=== PATIENT | female | born 1990 | race Caucasian/White ===

== ENCOUNTER 2022-11-19 20:04 | Outpatient (OUT) | payer OTHER, SELFPAY ==
[2022-11-23 14:09] LABS: HPV Aptima Negative (Negative); Pap IG (Image Guided) Note (.)
== END 2022-11-19 20:05 ==
PROVIDERS: PCP Physician Assistant; Visit Provider Physician Assistant
DX: Z12.4 Encounter for screening for malignant neoplasm of cervix (principal); R87.610 Atypical squamous cells of undetermined significance on cytologic smear of cervix (ASC-US); Z11.51 Encounter for screening for human papillomavirus (HPV); Z30.42 Encounter for surveillance of injectable contraceptive
CPT/HCPCS: 87624; G0145

== ENCOUNTER 2024-03-18 21:10 | Outpatient (REF) | payer OTHER, SELFPAY | END 2024-03-18 21:11 | disposition home or self-care (01) | LOC: LAB 21:10 | PROVIDERS: PCP Physician Assistant; Visit Provider Physician Assistant | DX: Z01.419 Encounter for gynecological examination (general) (routine) without abnormal findings (principal) | CPT/HCPCS: 88175 ==

== ENCOUNTER 2025-04-22 19:01 | Outpatient (REF) | payer OTHER, SELFPAY ==
--- OUTSIDE RECORDS SUMMARY | 2023-11-28 10:15 | XMS_ITS ---
Author Organization [facility] vices Address [address] [place] [phone] Care Team Providers Care Cosmetics And Toiletries Salesperson Name Role Phone Stephanie Maria Unavailable [phone] REASON FOR VISIT Rest #15-O Social History Sex Assigned At : Social History Observation Description Sex Assigned At Female Encounters Encounter Location Date Provider Diagnosis [facility] [address] [place], [place] [phone] 11/28/2023 Stephanie Maria Plan Of Treatment No Information Progress Notes * Cecilio SWENSONOB:1990 (35 yo F)Acc No.[id number]:11/28/2023 Patient:?Michael SWENSONin :?Stephanie Maria DDSDOB:1990???Age:33 Y ???Sex:FemaleDate:11/28/2023hone:[phone]:[address] [place], [place] [phone] Subjective: * Chief Complaints: * 1 . Rest #15-O. * Medical History: Objective: * Vitals: Assessment: Plan: * Treatment: * Billing Information: * Visit Code: * Procedure Codes: * Electronic signature of Stephanie Maria DDS on 04/22/2025 at 07:06 PM EST Sign off status: Pending * Provider: Sylvester Maria DDS Date: 11/28/2023 Generated for Printing/Faxing/eTransmitting on:?04/22/2025 07:06 PM EST
--- OUTSIDE RECORDS SUMMARY | 2023-11-29 03:45 | XMS_ITS ---
Author Organization [facility] vices Address [address] [place] [phone] Care Team Providers Care Human Services Program Specialist Name Role Phone Stephanie Maria Unavailable [phone] REASON FOR VISIT Rest #17-O Social History Sex Assigned At : Social History Observation Description Sex Assigned At Female Encounters Encounter Location Date Provider Diagnosis [facility] [address] [place], [place] [phone] 11/29/2023 Stephanie Maria Plan Of Treatment No Information Progress Notes * Cecilio SWENSONOB:1990 (35 yo F)Acc No.[id number]:11/29/2023 Patient:?Michael SWENSONin :?Stephanie Maria DDSDOB:1990???Age:33 Y ???Sex:FemaleDate:11/29/2023hone:[phone]:[address] [place], [place] [phone] Subjective: * Chief Complaints: * 1 . Rest #17-O. * Medical History: Objective: * Vitals: Assessment: Plan: * Treatment: * Billing Information: * Visit Code: * Procedure Codes: * Electronic signature of Stephanie Maria DDS on 04/22/2025 at 07:06 PM EST Sign off status: Pending * Provider: Sylvester Maria DDS Date: 11/29/2023 Generated for Printing/Faxing/eTransmitting on:?04/22/2025 07:06 PM EST
--- OUTSIDE RECORDS SUMMARY | 2024-02-18 07:45 | XMS_ITS ---
Author Organization [facility] vices Address [address] [place] [address] [place], [place] [phone] Care Team Providers Care Field Auto Appraiser Name Role Phone Stephanie Maria Unavailable [phone] Dori Mcfarlane Unavailable [phone] REASON FOR VISIT Recall (A) (36) Social History Sex Assigned At : Social History Observation Description Sex Assigned At Female Encounters Encounter Location Date Provider Diagnosis [facility] [address] [place] [phone] 02/18/2024 Dori Mcfarlane Plan Of Treatment No Information Progress Notes * KERRI MichaelinDOB:1990 (35 yo F)Acc No.[id number]:02/18/2024 Patient:?Myesha SWENOSN :?Dori Mcfarlane DDSDOB:1990???Age:34 Y ???Sex:FemaleDate:02/18/2024hone:[phone]:[address] [place], [place] [phone] Subjective: * Chief Complaints: * 1 . Recall (A) (36). * Medical History: Objective: * Vitals: Assessment: Plan: * Treatment: * Billing Information: * Visit Code: * Procedure Codes: * Electronic signature of Dori Mcfarlane DDS on 04/22/2025 at 07:06 PM ESTSign off status: Pending * Provider: Antonio Mcfarlane DDS Date: 0 02/18/2024 Generated for Printing/Faxing/eTransmitting on:?04/22/2025 07:06 PM EST
--- OUTSIDE RECORDS SUMMARY | 2025-04-22 09:00 | XMS_ITS | Encounter Summary ---
Author Organization [facility] Address [address] [place] [address] Care Team Providers Care Mine Engineering Supervisor Name Role Phone Marcus Swan MD Primary Care Provider [phone] Reason for Visit * ReasonCommentsGynecologic Exam Encounter Details DateTypeDepartmentCare Team (Latest Contact Info)Rxnvznijaov98/13/2025 9:00 AM ESTProcedure Visit [facility] [address] [address] Sachi Pradhan, RAO [address] [place] [address] Well woman exam with routine gynecological exam Social History Tobacco UseTypesPacks/DayYears UsedDateSmoking Tobacco: Never AssessedAlcohol UseStandard Drinks/WeekCommentsNever0 (1 standard drink = 0.6 oz pure alcohol) CommentsUnknownSex and Gender InformationValueDate RecordedSex Assigned at BirthNot on fileLegal KveBwmfgy71/15/2023 11:47 PM EDTGender IdentityNot on fileSexual OrientationNot on filedocumented as of this encounter Last Filed Vital Signs Vital SignReadingTime TakenCommentsBlood Yguxwtga270/6004/22/2025 9:04 AM EST Pulse--Temperature--Respiratory Rate--Oxygen Saturation--Inhaled Oxygen Concentration--Oaojoc04.2 kg (176 lb 12.8 oz)04/22/2025 9:04 AM ESTHeight--Body Mass Index30.35106/26/2022 10:31 AM ESTdocumented in this encounter Progress Notes * Sachi Lorne, RAO - 04/22/2025 9:00 AM EST Reason for Appointment: Patient ID: Myesha Swenson is a 35 y.o. female who presents for Gynecologic Exam Patient presents today for Annual Exam. MEDICATIONS No current outpatient medications ALLERGIES No Known Allergies PROBLEMS Active Ambulatory Problems Diagnosis Date Noted Acute stress reaction 11/14/2022 Atypical squamous cells of undetermined significance (ASCUS) on Papanicolaou smear of cervix 11/14/2022 Carcinoma in situ of uterine cervix 11/14/2022 Cervical high risk HPV (human papillomavirus) test positive 11/14/2022 Cervical intraepithelial neoplasia grade 2 11/14/2022 Chronic migraine without aura, not intractable, without status migrainosus 11/14/2022 High grade squamous intraepithelial lesion on cytologic smear of cervix (HGSIL) 11/14/2022 Obesity 11/14/2022 Dermatitis 05/06/2023 Resolved Ambulatory Problems Diagnosis Date Noted No Resolved Ambulatory Problems Past Medical History: Diagnosis Date Atypical squamous cell changes of undetermined significance (ASCUS) on cervical cytology with negative high risk human papilloma virus (HPV) test result HGSIL on Pap smear of cervix High grade squamous intraepithelial lesion (HGSIL), grade 3 ZA, on biopsy of cervix Migraine Moderate dysplasia of cervix (ZA II) Obesity (BMI 30-39.9) HISTORY PAST MEDICAL HISTORY SOCIAL HISTORY Past Medical History: Diagnosis Date Acute stress reaction Atypical squamous cell changes of undetermined significance (ASCUS) on cervical cytology with negative high risk human papilloma virus (HPV) test result Cervical high risk HPV (human papillomavirus) test positive HGSIL on Pap smear of cervix High grade squamous intraepithelial lesion (HGSIL), grade 3 ZA, on biopsy of cervix Migraine chronic Moderate dysplasia of cervix (ZA II) Obesity (BMI 30-39.9) Social History Tobacco Use Smoking status: Not on file Smokeless tobacco: Not on file Substance Use Topics Alcohol use: Never Drug use: Never FAMILY HISTORY No family history on file. SURGICAL HISTORY Past Surgical History: Procedure Laterality Date CERVICAL BIOPSY W/ LOOP ELECTRODE EXCISION HERNIA REPAIR 2019 REVIEW OF SYSTEMS Review of Systems: Review of Systems Constitutional: Negative. HENT: Negative. Eyes: Negative. Respiratory: Negative. Cardiovascular: Negative. Gastrointestinal: Negative. Genitourinary: Negative. Musculoskeletal: Negative. Skin: Negative. Neurological: Negative. All other systems reviewed and are negative. Hematological: Negative. Endocrine: Negative. Allergic/Immunologic: Negative. OBJECTIVE Objective: Physical Exam Constitutional: Appearance: Normal appearance. She is well-developed. Genitourinary: Vulva normal. Breasts: Breasts are soft. Right: Normal. Left: Normal. Cardiovascular: Rate and Rhythm: Normal rate and regular rhythm. Pulmonary: Effort: Pulmonary effort is normal. Breath sounds: Normal breath sounds. Abdominal: General: Bowel sounds are normal. There is no distension. Palpations: Abdomen is soft. Tenderness: There is no abdominal tenderness. There is no guarding or rebound. Musculoskeletal: General: No swelling. Normal range of motion. Right lower leg: No edema. Left lower leg: No edema. Neurological: Mental Status: She is alert and oriented to person, place, and time. Skin: General: Skin is warm and dry. Psychiatric: Mood and Affect: Mood normal. Behavior: Behavior normal. Vitals and nursing note reviewed. Exam conducted with a orthotic technician present. Vitals: Estimated body mass index is 30.35 kg/m?? as calculated from the following: Height as of 04/26/23: 5' 4 . Weight as of this encounter: 176 lb 12.8 oz. BP: 102/60 No LMP recorded. ASSESSMENT & PLAN ICD-10-CM 1. Well woman exam with routine gynecological exam Z01.419 Pap Smear HPV DNA probe, amplified Assessment/Plan Annual Exam: Patient presents today for an annual exam. Patient states she is doing well and has no complaints. Pap was obtained without difficulty. Orders Placed This Encounter Procedures HPV DNA probe, amplified Follow Up: Patient is to return in one year for annual unless needed otherwise. Documented by Abigail Rodriguez CST on behalf of: Sachi Pradhan NP documented in this encounter Plan of Treatment DateTypeDepartmentCare Team (Latest Contact Info)Qcmegayysoi85/25/2026 4:00 PM ESTProcedure Visit [facility] [address] [place] [phone] Russel Altamirano, [address] [place] [address] NameTypePriorityAssociated DiagnosesOrder SchedulePap SmearPathology and CytologyRoutine Well woman exam with routine gynecological exam Ordered: 04/22/2025HPV DNA probe, amplifiedMicrobiologyRoutine Well woman exam with routine gynecological exam Ordered: 04/22/2025documented as of this encounter Visit Diagnoses Diagnosis Well woman exam with routine gynecological exam Routine gynecological examination documented in this encounter Care Teams Team MemberRelationshipSpecialtyStart DateEnd Date Marcus Swan MD [address] [place] [address] PCP - GeneralFamily Medicine10/07/23documented as of this encounter
--- OUTSIDE RECORDS SUMMARY | 2025-04-22 19:04 | XMS_ITS | CCD ---
Author Organization [facility] Care Team Providers Care General Production Laborer Name Role Phone MARCUS DANG Primary Care UnavailFANTASMA Muro Attending Unavailable Marcus Dang Primary Care Provider Genna Bella Primary Care Provider [phone] MATT, DR ENG Admitting Unavailable MATT, DR ENG Attending Unavailable LAURENCE, DR MARCUS Irene Primary Care Unavailable MATT, DR ENG Consulting Unavailable MATT, DR ENG Admitting Unavailable MATT, DR ENG Attending Unavailable NADDONNELLR, DR MARCUS Irene Primary Care Unavailable MATT, DR ENG Consulting Unavailable MATT, DR ENG Admitting Unavailable MATT, DR ENG Attending Unavailable NADLAKIA, DR MARCUS Irene Primary Care Unavailable MATT, DR ENG Consulting Unavailable FELIPE NUNES Consulting Unavaila ble MATT, DR ENG Admitting Unavailable MATT, DR ENG Attending Unavailable LAURENCE, DR MARCUS Irene Primary Care Unavailable MATT, DR ENG Consulting Unavailable MATT, DR ENG Admitting Unavailable MATT, DR ENG Attending Unavailable NADLAKIA, DR MARCUS Irene Primary Care Unavailable MATT, DR ENG Consulting Unavailable JACEY BERRIOS Attending Unavailable JACEY BERRIOS Attending Unavailable JACEY BERRIOS Attending Unavailable Marcus Dang MD Primary Care Provider Medications Current Medications MedicationDrug Class(es)DatesSig (Normalized)Sig (Original)albuterol sulfate HFA 108 (90 Base) MCG/ACT inhaler 2 puff (1 source)Start: 98-69-8229dqduavdha sulfate HFA 108 (90 Base) MCG/ACT inhaler 2 puffaluminum chloride 200 mg/ml topical solution (5 sources)Start: 01-31-2024 End: 24-67-1754Tneifw 20 % external solution APPLY TO AREAS OF EXCESSIVE SWEATING UNDERARMS AT BEDTIME 01/31/2024 03/18/2024 Discontinueddicyclomine hydrochloride 10 mg oral capsule (1 source)AnticholinergicStart: 25-67-4702wreg 2 capsules by mouth four times daily as neededdicyclomine (BENTYL) 10 MG capsule Take 2 capsules by mouth 4 times daily as needed (cramping) 20 capsule 0 03/22/2017 Activeibuprofen 200 mg oral tablet (1 source)Nonsteroidal Anti-inflammatory Drugtake 2 tablets by mouth every six hours as needed for painibuprofen (ADVIL;MOTRIN) 200 MG tablet Take 400 mg by mouth every 6 hours as needed for Pain 0 Active Completed/Discontinued Medications MedicationDrug Class(es)DatesSig (Normalized)Sig (Original)albuterol 0.833 mg/ml / ipratropium bromide 0.167 mg/ml inhalant solution (1 source)Anticholinergic, beta2-Adrenergic AgonistStart: 08-03-2020 End: 83-69-8780znfisdzurcu-albuterol (DUONEB) nebulizer solution 1 ampule Problems Active Problems Problem ClassificationProblemDateDocumented DateEpisodic/ChronicAnxiety disorders (7 sources)Acute stress disorder; Translations: [Acute stress reaction]Onset: 086244-38-9152NoccyemIrhwquk obstructive pulmonary disease and bronchiectasis (1 source)Bronchitis; Translations: [Bronchitis]EpisodicHeadache; including migraine (7 sources)Migraine without aura, not refractory ; Translations: [Chronic migraine without aura, not intractable, without status migrainosus]Onset: 387767-50-7374QvyxboaCopdbemtsqswv and screening for infectious disease (5 sources)Encounter for screening for human papillomavirus (HPV); Translations: [ENC SCREENING HUMAN PAPILLOMAVIRUS]Onset: 67-94-0901NozxeiidBmnmg nutritional; endocrine; and metabolic disorders (7 sources)Obesity; Translations: [Obesity, unspecified]Onset: 11-14-2022 94-60-6564BlhdqlqBnbha screening for suspected conditions (not mental disorders or infectious disease) (6 sources)Encounter for screening for diabetes mellitus; Translations: [Encounter for screening for malignantneoplasm of cervix]Onset: 02-04-2019 EpisodicUnclassified (1 source)CONTACT W/AND (SUSP) EXPOS COVID-19; Translations: [CONTACT W/AND (SUSP) EXPOS COVID-19]Onset: 09-27-2021 Past or Other Problems Problem ClassificationProblemDateDocumented DateEpisodic/ChronicAllergic reactions (7 sources)Inflammatory dermatosis; Translations: [Dermatitis, unspecified] Onset: 655524-57-2326EqndfdldTkicsv of cervix (20 sources)High grade squamous intraepithelial lesion on cytologic smear of cervix (HGSIL); Translations: [Atypical squamous cells of undetermined significance on cytologic smear of cervix (ASC-US)]Onset: 871153-65-9577 EpisodicContraceptive and procreative management (2 sources)Patient encounter status; Translations: [Encounter for surveillance of implantable subdermal contraceptive]55-53-3743OyjkxsxfOgoynurq mellitus without complication (2 sources)Diabetes mellitus without complication; Translations: [Questionnaires Phq-9 Total Score]Onset: 12-95-6111Drfxv female genital disorders (7 sources)Cervical intraepithelial neoplasia grade 2; Translations: [Moderate cervical dysplasia]Onset: 015693-11-0622HyabnlsjNedtmwxo transmitted infections (not HIV or hepatitis) (11 sources)Cervical high risk human papillomavirus (HPV) DNA test positive; Translations: [Human papillomavirus deoxyribonucleic acid test positive, high risk on cervical specimen]Onset: 44-82-8786JomhvlryAupkofibuvnm (1 source)Finding of body mass index; Translations: [Body Mass Index]Onset: 09-80-1455Fisupzylrpzq (1 source)History AND physical examination; Translations: [Routine History and Physical]Onset: 02-04-2019 Results Test NameValueInterpretationReference RangeFacilityIGP,APTIMA HPV,AGE GDLNon 79-27-0603UMU GDLN ACOG TESTINGNote.NOMS HealthcareComment on above:TESTS RESULT FLAG UNITS REF RANGE LAB Clinician Provided Cytology Information Source.............Cervix;Endocervix No. of containers..01 ThinPrep Vial Age Talita HILL Beth... 28 FLAG LEGEND: L-Low Normal,H-High Normal,LL-Alert Low,HH-Alert High <-Panic Low,>-Panic High,A-Abnormal,AA-Critical Abnormal Performed at: 01 =G [address] [address] Rosita Serrato MD, HPV APTIMANegativeNegativeNOMS HealthcareComment on above:This nucleic acid amplification test detects fourteen high- risk HPV types (16,18,31,33,35,39,45,51,52,56,58,59,66,68) without differentiation. Performed at: =[address] [id number] Billboard Erector Helper: Rosita Serrato MD, Phone: [phone] Performed at: - [address] [id number] Billboard Erector Helper: Rosita Serrato MD, Phone: [phone] IGP, APTIMA HPV, RFX 16/18,45Note.NOMS HealthcareComment on above:TESTS RESULT FLAG UNITS REF RANGE LAB DIAGNOSIS: 02 NEGATIVE FOR INTRAEPITHELIAL LESION OR MALIGNANCY. Specimen adequacy: 02 Satisfactory for evaluation. Endocervical and/or squamous metaplastic cells (endocervical component) are present. Performed by: Darion Welsh Telephone Engineer ([facility]) . 02 Note: Note 02 The Pap smear is a screening test designed to aid in the detection of premalignant and malignant conditions of the uterine cervix. It is not a diagnostic procedure and should not be used as the sole means of detecting cervical cancer. Both false-positive and false-negative reports do occur. Test Methodology: Note 02 This liquid based ThinPrep(R) pap test was screened with the use of an image guided system. HPV Genotype Reflex Note 02 Criteria not met, HPV Genotype not performed. FLAG LEGEND: L-Low Normal,H-High Normal,LL-Alert Low,HH-Alert High <-Panic Low,>-Panic High,A-Abnormal,AA-Critical Abnormal Performed at: [address] [address] Rosita Serrato MD, BRUSH-SPATULA CERVIX ENDOCERVIX CLINISYNCNOMS [facility] ACOG PANEL 2: 30 to 65on 01-23-2022..NormalThe [facility]ency Hospital ToledoComment on above:Result Comment: Performed at: WBPerformed By: #### [id number] #### [facility] [address] [place] [address] James Yu Gdln ACOG Abbukhc24-70HxwvmiKujKing's Daughters Medical Center OhioComment on above:Performed By: #### [id number] #### [facility] [address] [place] [address] Dr. James CastanedaDIAGNOSIS:CommentAbJ.W. Ruby Memorial Hospital on above: Result Comment: EPITHELIAL CELL ABNORMALITY. ATYPICAL SQUAMOUS CELLS OF UNDETERMINED SIGNIFICANCE (ASC-US). PREDOMINANCE OF COCCOBACILLI CONSISTENT WITH SHIFT IN VAGINAL SHELBIE IS PRESENT. Performed at: WBPerformed By: #### [id number] #### [facility] [address] [place] [address] Dr. Ramirez ChangElectronically signed by:[facility] Comment on above:Result Comment: Lesly aSndoval MD, Pathologist Performed at: WBPerformed By: #### [id number] #### [facility] [address] [place] [address] Dr. James CastanedaHPV AptimaPositiveAbnormalNegativeKettering HealthComment on above:Result Comment: This nucleic acid amplification test detects fourteen high-risk HPV types (16,18,31,33,35,39,45,51,52,56,58,59,66,68) without differentiation. Performed at: =GPerformed By: #### [id number] #### [facility] [address] [place] [address] Dr. James CastanedaMethodology:CommentSelect Medical Specialty Hospital - [facility] on above: Result Comment: This liquid based ThinPrep(R) pap test was screened with the use of an image guided system. Performed at: WBPerformed By: #### [id number] #### [facility] [address] [place] [address] Dr. James CastanedaNote:CommentSelect Medical Specialty Hospital - [place] on above:Result Comment: The Pap smear is a screening test designed to aid in the detection of premalignant and malignant conditions of the uterine cervix. It is not a diagnostic procedure and should not be used as the sole means of detecting cervical cancer. Both false-positive and false-negative reports do occur. . Performed at: WBPerformed By: #### [id number] #### [facility] [address] [place] [address] Dr. James CastanedaPathologist Provided PTO11HvzravkEyughgPjxKing's Daughters Medical Center Ohio Comment on above:Result Comment: R87.610, R87.5 Performed at: Performed By: #### [id number] #### [facility] [address] [place] [address] Dr. James CastanedaPerformed by:CommentBlanchard Valley Health Systemment on above: Result Comment: Giovanni Philip, Telephone Engineer (ASCP) Performed at: Performed By: #### [id number] #### [facility] [address] [place] [address] Dr. James CastanedaRecommendation:CommentAbnoKing's Daughters Medical Center OhioComhillsdale hospital on above:Result Comment: Suggest follow up as clinically appropriate. Performed at: Performed By: #### [id number] #### [facility] [address] [place] [address] Dr. James CastanedaSpecimen adequacy:CommentSelect Medical Specialty Hospital - [place] on above:Result Comment: Satisfactory for evaluation. Endocervical and/or squamous metaplastic cells (endocervical component) are present. Performed at: Performed By: #### [id number] #### [facility] [address] [place] [address] Dr. James Jones AUTO DIFFon 84-77-2304LFNI #0.0 103/ulNormal0.0-0.1Kettering HealthComment on above:Performed By: #### CBC #### [facility] [address] [place] [address] Dr. James CastanedaBasophils/100 WBC (Bld)0.6 %Normal0.2-2.0The [facility] Comment on above:Performed By: #### CBC #### [facility] [address] [place] [address] Dr. James Tan #0.2 103/ulNormal0.0-0.7The [facility] ToledoComment on above: Performed By: #### CBC #### [facility] [address] [place] [address] Dr. James Desaiosinophils/100 WBC (Bld)4.3 %Normal0.9-7.0The [facility] Comment on above:Performed By: #### CBC #### [facility] [address] [place] [address] Dr. James Desairythrocyte distribution width (RBC) [Ratio]12.4 %Xllufq27.0-15.0 The [facility] ToledoComment on above:Performed By: #### CBC #### [facility] [address] [place] [address] Dr. James CastanedaHematocrit (Bld) [Volume fraction]41.7 %Qfpbcs90.0-48.0The [facility] ToledoComment on above:Performed By: #### CBC #### [facility] [address] [place] [address] Dr. James CastanedaHemoglobin (Bld) [Mass/Vol]13.7 g/fNHutoyg86.0-16.0The [facility] ToledoComment on above:Performed By: #### CBC #### [facility] [address] [place] [address] Dr. James Figueroa #0.01 10e3/ulNormal0.00-0.03The [facility] ToledoComment on above:Performed By: #### CBC #### [facility] [address] [place] [address] Dr. James Figueroa %0.2 %Normal0.0-0.5The [facility] ToledoComment on above: Performed By: #### CBC #### [facility] [address] [place] [address] Dr. James BirdH #2.0 103/ulNormal1.2-3.8The [facility] ToledoComment on above:Performed By: #### CBC #### [facility] [address] [place] [address] Dr. James Acuñamphocytes/100 WBC (Bld)42.1 %Gewxfs08.5-60.0The [facility] ToledoComment on above:Performed By: #### CBC #### [facility] [address] [place] [address] DrTereza Boyd DIFF REQNONormalThe [facility] Hospital ToledoComment on above: Performed By: #### CBC #### [facility] [address] [place] [address] Dr. James Charles (RBC) [Entitic mass]32.4 rjCpbrlh55.7-34.0The [facility] ToledoComment on above:Performed By: #### CBC #### [facility] [address] [place] [address] Dr. James Charles (RBC) [Mass/Vol]32.9 g/hPRutbgu83.9-35.2The [facility]ittleton HospitalComment on above:Performed By: #### CBC #### [facility] [address] [place] [address] Dr. James Charles (RBC) [Entitic vol]98.6 wUHillfj47.0-99.0The [facility] ToledoComment on above:Performed By: #### CBC #### [facility] [address] [place] [address] Dr. James Fisher #0.3 103/ulNormal0.3-0.8The [facility] ToledoComment on above:Performed By: #### CBC #### [facility] [address] [place] [address] Dr. James Vicenteocytes/100 WBC (Bld)6.9 %Normal1.7-12.0[facility] Comment on above:Performed By: #### CBC #### [facility] [address] [place] [address] Dr. James Peña #2.1 103/ulNormal1.4-6.5The [facility] ToledoComment on above:Performed By: #### CBC #### [facility] [address] [place] [address] Dr. James Bhatiautrophils/100 WBC (Bld)45.9 %Nklrca06.0-75.0The [facility] ToledoComment on above:Performed By: #### CBC #### [facility] [address] [place] [address] Dr. James Minor mean volume (Bld) [Entitic vol]9.8 fLNormal9.5-13.5ThDelaware County HospitalComment on above:Performed By: #### CBC #### [facility] [address] [place] [address] Dr. James CastanedaPLT189 103/zjVfbvou471-795Peh [facility] ToledoComment on above: Performed By: #### CBC #### [facility] [address] [place] [address] Dr. James CastanedaRBC4.23 106/ulNormal4.20-5.40Kettering HealthComment on above:Performed By: #### CBC #### [facility] [address] [place] [address] Dr. James CastanedaWBC4.6 103/ulNormal4.0-11.0Kettering HealthComment on above: Performed By: #### CBC #### [facility] [address] [place] [address] Dr. James CastanedaPREMiguelito QUANT HCGon 35-79-2846BPE QUANT<1NormalKettering Health Comment on above:Performed By: #### PREGQNT #### [facility] [address] [place] [address] Dr. James CastanedaHCMiguelito RANGESEE BELOWNormalThDelaware County HospitalComment on above: Result Comment: 5-50 0-1 WEEK 40-300 1-2 WEEKS 100-1,000 2-3 WEEKS 500-6,000 3-4 WEEKS 5,000-200,000 1-2 MONTHS 10,000-100,000 2-3 MONTHS 3,000-50,000 2ND TRIMESTER 1,000-50,000 3RD TRIMESTERPerformed By: #### PREGQNT #### [facility] [address] [place] [address] Dr. James CastanedaCovid-19 PCR ([facility]VDNEWT[facility])on 86-45-7102KOGR-CoV-2 (COVID-19) RNA KAROLYN+probe Ql (Unsp spec)Not detectedNormalNOT DETECTEDKettering Health Comment on above:Result Comment: This test is not yet approved or cleared by the [place] FDA. When there are no FDA-approved or cleared tests available, and other criteria are met, FDA can make tests available under an emergency access mechanism called an Emergency Use Authorization (EUA). The EUA for this test is supported by the Shoe Sticks Repairer of Health and Human Service's (HHS's) declaration that circumstances exist to justify the emergency use of in vitro diagnostics for the detection and/or diagnosis of the virus that causes COVID- 19. This EUA will remain in effect (meaning this test can be used) for the duration of the COVID-19 declaration justifying emergency of IVDs, unless it is terminated or revoked by FDA (after which the test may no longer be used). When diagnostic testing is negative, the possibility of a false negative should be considered in the context of a patient's recent exposures and the presence of clinical signs and symptoms consistent with SARS-CoV-2.Performed By: #### CVDTBH #### [facility] [address] [place] [address] Dr. James CastanedaPanasir IG, rfx Aptima HPV ASCUon 09-06-2021..NormalKettering HealthComment on above:Performed By: #### [id number] #### [facility] [address] [place] [address] Dr. James CastanedaDIAGNOSIS:CommentAbCleveland Clinic FoundationComment on above: Result Comment: EPITHELIAL CELL ABNORMALITY. HIGH-GRADE SQUAMOUS INTRAEPITHELIAL LESION (HSIL); (ENCOMPASSING MODERATE AND SEVERE DYSPLASIA/CARCINOMA IN SITU/CIN2/CIN3).Performed By: #### [id number] #### [facility] [address] [place] [address] Dr. Ramirez ChangElectronically signed by:CommentMain Campus Medical Center Comment on above:Result Comment: Lisha Licona MD, PathologistPerformed By: #### [id number] #### [facility] [address] [place] [address] Dr. James CastanedaMethodology:CommentMain Campus Medical CenterComment on above: Result Comment: This liquid based ThinPrep(R) pap test was screened with the use of an image guided system.Performed By: #### [id number] #### [facility] [address] [place] [address] Dr. James CastanedaNote:CommentSelect Medical Specialty Hospital - [place] on above:Result Comment: The Pap smear is a screening test designed to aid in the detection of premalignant and malignant conditions of the uterine cervix. It is not a diagnostic procedure and should not be used as the sole means of detecting cervical cancer. Both false-positive and false-negative reports do occur. .Performed By: #### [id number] #### [facility] [address] [place] [address] Dr. James CastanedaPathologist Provided MAZ22SbgdpizJtxistJdgWhite Hospital Comment on above:Result Comment: R87.613Performed By: #### [id number] #### [facility] [address] [place] [address] Dr. James CastanedaPerformed by:CommentSelect Medical Specialty Hospital [facility] [place] on above: Result Comment: Stacey Santillan, CytotechnologistPerformed By: #### [id number] #### [facility] [address] [place] [address] Dr. James CastanedaReflex Criteria:CommentSelect Medical Specialty Hospital - [place] on above:Result Comment: The HPV DNA reflex criteria were not met with this specimen result therefore, no HPV testing was performed. .Performed By: #### [id number] #### [facility] [address] [place] [address] Dr. James CastanedaSpecimen adequacy:CommentSelect Medical Specialty Hospital - [place] on above:Result Comment: Satisfactory for evaluation. Endocervical and/or squamous metaplastic cells (endocervical component) are present.Performed By: #### [id number] #### [facility] [address] [place] [address] Dr. James Walters-CoV-2on 40-16-6847GVXM-CoV-2NWadsworth-Rittman Hospital Comment on above:Performed By: #### COVID #### [place] [address] Billboard Erector Helper: James Armenta MD [address] [place] [address] Billboard Erector Helper: GLORY FloresARS-CoV-2Not DetectedNormalNOTDETMJ.W. Ruby Memorial Hospital on above:Result Comment: The specimen is NEGATIVE for SARS-CoV-2, the novel coronavirus associated with COVID-19. A negative result does not rule out COVID-19. This test has been authorized by the FDA under an Emergency Use Authorization (EUA) for use by authorized laboratories. [employer] SARS-CoV-2 Reagents for [employer] are designed to detect the virus that causes COVID-19 in patients with signs and symptoms of infection who are suspected of COVID-19. An individual without symptoms of COVID-19 and who is not shedding SARS-CoV-2 virus would expect to have a negative (not detected) result in this assay. Fact sheet for Healthcare Providers: https://www.fda.gov/media/002971/download Fact sheet for Patients: https://www.fda.gov/media/586867/download METHODOLOGY: RT-PCRPerformed By: #### COVID #### [facility] [address] [place], [place] [id number] Billboard Erector Helper: James Armenta MD [address] [place] [address] Billboard Erector Helper: Deshawn Asher MDBasic Metab w/rfx MGon 08-03-2020(cont.)Normal [facility] on above:Result Comment: Average GFR for 30-39 years old: 107 mL/min/1.73sq m Chronic Kidney Disease: <60 mL/min/1.73sq m Kidney failure: <15 mL/min/1.73sq m eGFR calculated using average adult body mass. Additional eGFR calculator available at: http://www.[employer]/multiple_crcl_2012.htmPerformed By: #### DIME, BMPX, BNP, TROPI, CDP #### [address] [place] [address] Billboard Erector Helper: Deshawn Asher MDAnion gap [Moles/Vol]13 mmol/LNormal9-17[facility] Main CampusComment on above:Performed By: #### DIME, BMPX, BNP, TROPI, CDP #### [address] [place] [address] Billboard Erector Helper: Deshawn Asher MDBUN/CRE Cdwhs28Xyzapm3-03Fcjtv [facility] Comment on above:Performed By: #### DIME, BMPX, BNP, TROPI, CDP #### [address] [place] [address] Billboard Erector Helper: Deshawn Asher MDCalcium [Mass/Vol]9.4 mg/dLNormal8.6-10.4[facility] Main CampusComment on above:Performed By: #### DIME, BMPX, BNP, TROPI, CDP #### [address] [place], [facility] Billboard Erector Helper: KAREN Floreshloride [Moles/Vol]103 mmol/ABlxgvu17-816QoxaxWayne Healthcare Main CampusComment on above:Performed By: #### DIME, BMPX, BNP, TROPI, CDP #### [address] [place] [address] Billboard Erector Helper: Deshawn Asher MDCO2 [Moles/Vol]21 mmol/HVylbhh23-19Ndaur Tiffin HospitalComment on above:Performed By: #### DIME, BMPX, BNP, TROPI, CDP #### [address] [place] [address] Billboard Erector Helper: Deshawn Asher MDCreatinine [Mass/Vol]0.92 mg/dLHigh0.50-0.90[facility] HospitalComment on above:Performed By: #### DIME, BMPX, BNP, TROPI, CDP #### [address] [place], [place] [id number] Billboard Erector Helper: Deshawn Asher MDGFR, Amer>60Normal>60[facility] Hospital Comment on above:Performed By: #### DIME, BMPX, BNP, TROPI, CDP #### [address] [place], [place] [id number] Billboard Erector Helper: Deshawn Asher MDGFR,non Amer>60Normal>60[facility] HospitalComment on above:Performed By: #### DIME, BMPX, BNP, TROPI, CDP #### [address] [place] [address] Billboard Erector Helper: Deshawn Asher MDGlucose [Mass/Vol]146 mg/iTUliu10-53Eghcm Mullen HospitalComment on above:Performed By: #### DIME, BMPX, BNP, TROPI, CDP #### [address] [place], [place] [id number] Billboard Erector Helper: LUIS FELIPE Floresotassium [Moles/Vol]4.1 mmol/LNormal3.7-5.3Mmercy health tiffin hospitaly Mullen HospitalComment on above:Performed By: #### DIME, BMPX, BNP, TROPI, CDP #### [address] [place] [address] Billboard Erector Helper: GLORY Floresodium [Moles/Vol]137 mmol/TMwdbiw739-863CceenWayne Healthcare Main CampusComment on above:Performed By: #### DIME, BMPX, BNP, TROPI, CDP #### [address] [place] [address] Billboard Erector Helper: GLORY Florestaging:NormalGrand Lake Joint Township District Memorial Hospital HospitalComment on above:Result Comment: Stage 1: Some kidney damage normal GFR Stage 2: Mild kidney damage GFR 60-89 Stage 3: Moderate kidney damage GFR 30-59 Stage 4: Severe kidney damage GFR 15-29 Stage 5: Severe kidney damage GFR <15 ESRD - chronic treatment by dialysis or transplantPerformed By: #### DIME, BMPX, BNP, TROPI, CDP #### [facility] [address] [place] [address] Billboard Erector Helper: Deshawn Asher MDUrea nitrogen [Mass/Vol]9 mg/dLNormal6-20[facility] Main CampusComment on above:Performed By: #### DIME, BMPX, BNP, TROPI, CDP #### [facility] [address] [place] [address] Billboard Erector Helper: Deshawn Asher MDStamford Hospital Metabolic Panel w/ Reflex to MGon 08-03-2020 Anion gap [Moles/Vol]13 mmol/L9 - 17 mmol/LMmercy health tiffin hospitaly [employer] Work Phone: bun/Cre Dukzl36[place] [employer] Work Phone: calcium [Mass/Vol]9.4 mg/dL8.6 - 10.4 mg/dLOhiohealth Grant Medical CenterKyruus Phone: chloride [Moles/Vol]103 mmol/L98 - 107 mmol/LMmercy health tiffin hospitaly [employer] Work Phone: cO2 [Moles/Vol]21 mmol/L20 - 31 mmol/LMmercy health tiffin hospitaly [employer] Work Phone: creatinine [Mass/Vol]0.92 mg/dLHigh0.5 - 0.9 mg/dL [facility] [employer] Phone: GFR >60>60 mL/minC[facility] Clinic [facility] [employer] Work Phone: GFR Non->60>60 mL/minC[facility] Clinic [facility] [employer] Phone: Glucose [Mass/Vol]146 mg/oOGijy43 - 99 mg/dLOhiohealth Grant Medical CenterKyruus Phone: Interpretation and review of laboratory results AbnormalC[facility] Clinic [facility] [employer] Phone: potassium [Moles/Vol]4.1 mmol/L3.7 - 5.3 mmol/LMercy [employer] Work Phone: sodium [Moles/Vol]137 mmol/L135 - 144 mmol/LMercy [employer] Work Phone: Urea nitrogen [Mass/Vol]9 mg/dL6 - 20 mg/dLCleveland Clinic [facility] [employer] Work Phone: brain Natri. Peptideon [id number] peptide B (Bld) [Mass/Vol]Pro-BNP Reference Range:NormalWayne Healthcare Main CampusComment on above:Result Comment: Rule Out: <300 [place]: Age <50 300-450 Age 50-75 300-900 Age >75 300-1800 Usually represents mild to moderate HF but other cardiopulmonary causes cannot be ruled out. Rule In: Age <50 >450 Age 50-75 >900 Age >75 >1800Performed By: #### DIME, BMPX, BNP, TROPI, CDP #### [address] [place] [address] Billboard Erector Helper: Deshawn Asher MDNatriuretic peptide B (Bld) [Mass/Vol]36 pg/mL Normal<300Way[facility] Healthcare Main CampusComhillsdale hospital on above:Result Comment: Pro-BNP results cannot be compared to BNP results.Performed By: #### DIME, BMPX, BNP, TROPI, CDP #### [address] [place] [address] Billboard Erector Helper: Deshawn Asher MDBrain Natriuretic Peptideon [id number] peptide B (Bld) [Mass/Vol]Pro-BNP Reference Range:[facility] Phone: comment on above: Rule Out: <300 [place]: Age <50 300-450 Age 50-75 300-900 Age >75 300-1800 Usually represents mild to moderate HF but other cardiopulmonary causes cannot be ruled out. Rule In: Age <50 >450 Age 50-75 >900 Age >75 >1800 Natriuretic peptide B (Bld) [Mass/Vol]36 pg/mL<300[facility] [employer] Phone: comment on above:Pro-BNP results cannot be compared to BNP results.CBC Auto Differentialon [id number] (Bld) [#/Vol]0.00 10*3/[place] Phone: basophils/100 WBC (Bld)0 %0 - 2 %[employer] Phone: differential TypeNOT REPORTEDOhiohealth Grant Medical CenterKyruus Phone: Tosinophils (Bld) [#/Vol]0.00 10*3/[place] Phone: Rosinophils/100 WBC (Bld)0 %Low1 - 4 %[employer] Phone: erythrocyte distribution width (RBC) [Ratio]12.2 %11.8 - 14.4 %[employer] Phone: Hematocrit (Bld) [Volume fraction]44.3 %36.3 - 47.1 % [employer] Phone: Hemoglobin (Bld) [Mass/Vol]14.8 g/dL11.9 - 15.1 g/dL [employer] Phone: Immature granulocytes (Bld) [#/Vol]0 %0Ohio[facility] CenterKyruus Phone: Immature granulocytes (Bld) [#/Vol]0.00 10*3/[place] Phone: Interpretation and review of laboratory results AbnormalOhiohealth Grant Medical CenterKyruus Phone: lymphocytes (Bld) [#/Vol]0.45 10*3/uLLowOhiohealth Grant Medical CenterKyruus Phone: Lymphocytes/100 WBC (Bld)6 %Low24 - 43 %[employer] Phone: MCH (RBC) [Entitic mass]32.5 pg25.2 - 33.5 pgOhiohealth Grant Medical CenterKyruus Phone: MCHC (RBC) [Mass/Vol]33.4 g/dL28.4 - 34.8 g/dLCleveland Clinic [facility] [employer] Work Phone: [phone] (RBC) [Entitic vol]97.4 fL82.6 - 102.9 fLOhiohealth Grant Medical Centerice Work Phone: [phone] (Bld) [#/Vol]0.08 10*3/uLLowCleveland Clinic [facility] [employer] Work Phone: [phone]/100 WBC (Bld)1 %Low3 - 12 %[facility] Work Phone: Morphology Boni (Bld) [Interp]NormalOhiohealth Grant Medical CenterKyruus Phone: Platelet mean volume (Bld) [Entitic vol]10.7 fL8.1 - 13.5 fLOhiohealth Grant Medical CenterKyruus Phone: Platelets (Bld) [#/Vol]NOT REPORTEDC[facility] Clinic [facility] [employer] Work Phone: [phone] (Bld) [#/Vol]237 10*3/uLOhiohealth Grant Medical Centerice Work Phone: RBC (Bld) [#/Vol]4.55 10*6/uL3.95 - 5.11 m/uLOhiohealth Grant Medical CenterKyruus Phone: RBC morphology finding Nom (Bld)NOT REPORTEDC[facility] [employer] Phone: [phone] neutrophils/100 WBC (Bld)93 %High36 - 65 % [facility] [employer] Phone: Segs Absolute6.97[facility] [employer] Work Phone: WBC (Bld) [#/Vol]0.0 10*3/uL0.0 per 100 WBCOhiohealth Grant Medical CenterKyruus Phone: [phone] (Bld) [#/Vol]7.5 10*3/uLOhiohealth Grant Medical Centerice Work Phone: WBC MorphologyNOT REPORTEDDetwiler Memorial Hospital Work Phone: cbc with Diffon [id number]. Basophil0.00 k/uLNormal 0.0-0.2Mercy Mullen HospitalComment on above:Performed By: #### DIME, BMPX, BNP, TROPI, CDP #### [address] [place], [place] [address] Billboard Erector Helper: Demetri Flores.Imm.Granulocyte0.00 k/uLNormal0.00-0.30[facility] HospitalComment on above:Performed By: #### DIME, BMPX, BNP, TROPI, CDP #### [address] [place], [place] [address] Billboard Erector Helper: Demetri Flores.Neutrophil (Seg)6.97 k/uLNormal1.50-8.10[facility] HospitalComment on above:Performed By: #### DIME, BMPX, BNP, TROPI, CDP #### [address] [place] [address] Billboard Erector Helper: Deshawn Asher MDBasophils/100 WBC (Bld)0 %Normal0-2[facility]ercPomerene Hospital HospitalComment on above:Performed By: #### DIME, BMPX, BNP, TROPI, CDP #### [address] [place] [address] Billboard Erector Helper: ELIZA Floresosinophils (Bld) [#/Vol]0.00 10*3/uLNormal 0.00-0.44[facility] HospitalComment on above:Performed By: #### DIME, BMPX, BNP, TROPI, CDP #### [address] [place], [place] [address] Billboard Erector Helper: ELIZA Floresosinophils/100 WBC (Bld)0 %Low1-4[facility] Healthcare Main CampusComment on above:Performed By: #### DIME, BMPX, BNP, TROPI, CDP #### [facility] [address] [place] [address] [place] [address] Billboard Erector Helper: Deshawn Asher MDImmature granulocytes (Bld) [#/Vol]0 %Kvynrh6Qhtsr Mullen HospitalComment on above:Performed By: #### DIME, BMPX, BNP, TROPI, CDP #### [address] [place] [id number] Billboard Erector Helper: Deshawn Asher MDLymphocytes (Bld) [#/Vol]0.45 10*3/uLLow1.10-3.70 [facility] HospitalComment on above:Performed By: #### DIME, BMPX, BNP, TROPI, CDP #### [address] [place] [address] Billboard Erector Helper: Tim Floresmphocytes/100 WBC (Bld)6 %Rgy37-65Yddoy Tiffin HospitalComment on above:Performed By: #### DIME, BMPX, BNP, TROPI, CDP #### [address] [place] [place] [address] Billboard Erector Helper: SHARRI Floresonocytes (Bld) [#/Vol]0.08 10*3/uLLow0.10-1.20 [facility] HospitalComment on above:Performed By: #### DIME, BMPX, BNP, TROPI, CDP #### [address] [place] [address] Billboard Erector Helper: SHARRI Floresonocytes/100 WBC (Bld)1 %Low3-12[facility] HospitalComment on above:Performed By: #### DIME, BMPX, BNP, TROPI, CDP #### [address] [place], [facility]83 Billboard Erector Helper: SHARRI Floresorphology Boni (Bld) [Interp]NormalNormalWayne Healthcare Main CampusComment on above:Performed By: #### DIME, BMPX, BNP, TROPI, CDP #### [address] [place], [facility]83 Billboard Erector Helper: Deshawn Asher MDNeutrophil (Seg)93 %Ygia79-70EzqkdWayne Healthcare Main Campus Comment on above:Performed By: #### DIME, BMPX, BNP, TROPI, CDP #### [address] [place], [facility]83 Billboard Erector Helper: Deshawn Asher MDErythrocyte distribution width (RBC) [Ratio]12.2 % Iysodq37.8-14.4[facility] Healthcare Main CampusComment on above:Performed By: #### DIME, BMPX, BNP, TROPI, CDP #### [address] [place], [facility]83 Billboard Erector Helper: Deshawn Asher MDHematocrit (Bld) [Volume fraction]44.3 %Normal 36.3-47.1MProMedica Bay Park HospitalComment on above:Performed By: #### DIME, BMPX, BNP, TROPI, CDP #### [address] [place], [facility]83 Billboard Erector Helper: Deshawn Asher MDHemoglobin (Bld) [Mass/Vol]14.8 g/dLNormal 11.9-15.1MShelby Memorial Hospital HospitalComment on above:Performed By: #### DIME, BMPX, BNP, TROPI, CDP #### [address] [place], [facility]83 Billboard Erector Helper: SHARRI FloresCH (RBC) [Entitic mass]32.5 lgZkedoh49.2-33.5 [facility] HospitalComment on above:Performed By: #### DIME, BMPX, BNP, TROPI, CDP #### [address] [place], [place] [address] Billboard Erector Helper: MOE FloresC (RBC) [Mass/Vol]33.4 g/iXRhoyvf04.4-34.8[facility] Healthcare Main CampusComment on above:Performed By: #### DIME, BMPX, BNP, TROPI, CDP #### [address] [place], [place] [address] Billboard Erector Helper: SHARRI FloresCV (RBC) [Entitic vol]97.4 rHMnghsu61.6-102.9 [facility] CampusComment on above:Performed By: #### DIME, BMPX, BNP, TROPI, CDP #### [address] [place], [facility]83 Billboard Erector Helper: CANDE Flores Automated0.0 per 100 WBCNormal0.0[facility] Healthcare Main CampusComment on above:Performed By: #### DIME, BMPX, BNP, TROPI, CDP #### [address] [place], [place] [address] Billboard Erector Helper: Speedy Flores mean volume (Bld) [Entitic vol]10.7 fL Normal8.1-13.5[facility] Healthcare Main CampusComment on above:Performed By: #### DIME, BMPX, BNP, TROPI, CDP #### [address] [place], [place] [address] Billboard Erector Helper: Davina Flores (Bld) [#/Vol]237 10*3/wRSilxeh016-465 [facility] Main CampusComment on above:Performed By: #### DIME, BMPX, BNP, TROPI, CDP #### [address] [place] [address] Billboard Erector Helper: SOLEDAD Flores (Bld) [#/Vol]4.55 10*6/uLNormal3.95-5.11Mercy Mullen HospitalComment on above:Performed By: #### DIME, BMPX, BNP, TROPI, CDP #### [address] [place], [place] [address] Billboard Erector Helper: BABITA Flores (Bld) [#/Vol]7.5 10*3/uLNormal3.5-11.3Mercy Mullen HospitalComment on above:Performed By: #### DIME, BMPX, BNP, TROPI, CDP #### [address] [place] [address] Billboard Erector Helper: Jesus Flores PerformedNOT REPORTEDNormalGrand Lake [facility] HospitalComment on above:Performed By: #### DIME, BMPX, BNP, TROPI, CDP #### [address] [place] [address] Billboard Erector Helper: Davina Flores (d) [#/Vol]NOT REPORTEDNormalGrand Lake [facility] HospitalComment on above:Performed By: #### DIME, BMPX, BNP, TROPI, CDP #### [address] [place] [address] Billboard Erector Helper: SOLEDAD Flores morphology finding Nom (d)NOT REPORTEDNormal [facility] HospitalComment on above:Performed By: #### DIME, BMPX, BNP, TROPI, CDP #### [address] [place], [place] [address] Billboard Erector Helper: BABITA Flores MorphologyNOT REPORTEDNormalGrand Lake [facility] HospitalComment on above:Performed By: #### DIME, BMPX, BNP, TROPI, CDP #### [address] [place], [place] [address] Billboard Erector Helper: Deshawn Asher MDD-Dimer Teston [id number]-Dimer Test0.32 mg/L FEU Normal0.00-0.59Way[facility] Healthcare Main CampusComment on above:Result Comment: When combined with a low clinical probability, a D dimer value of <0.50 mg/L FEU is considered negative for DVT and PE (negative predictive value of 98%, sensitivity of 97%). If this test is not being used to help rule out DVT and PE, then the following reference range should be utilized: 0.00 - 0.59 mg/L FEU. The D-Dimer assay is intended for use as an aid in the diagnosis of venous thromboembolism (DVT and PE) and the results should be interpreted in conjunction with the patient's medical history, clinical presentation, and other findings. Elevated levels of D-dimer activity can be seen in any state of coagulation activation and is not recommended in patients with therapeutic dose anticoagulant therapy for >24 hours, fibrinolytic therapy within the previous 7 days, trauma or surgery within the previous 4 weeks, disseminated malignancies, aortic aneurysm, sepsis, severe infections, pneumonia, severe skin infections, liver cirrhosis, advanced age, coronary disease, diabetes, and . A very low percentage of patients with DVT may yield D-dimer results below the cutoff of 0.5 mg/L FEU. This is known to be more prevalent in patients with distal DVT.Performed By: #### DIME, BMPX, BNP, TROPI, CDP #### [address] [place] [address] Billboard Erector Helper: LISET Flores-Dimer, Quantitativeon [id number]-Dimer, Quant 0.32[facility] Work Phone: comment on above: When combined with a low clinical probability, a D dimer value of <0.50 mg/L FEU is considered negative for DVT and PE (negative predictive value of 98%, sensitivity of 97%). If this test is not being used to help rule out DVT and PE, then the following reference range should be utilized: 0.00 - 0.59 mg/L FEU. The D-Dimer assay is intended for use as an aid in the diagnosis of venous thromboembolism (DVT and PE) and the results should be interpreted in conjunction with the patient's medical history, clinical presentation, and other findings. Elevated levels of D-dimer activity can be seen in any state of coagulation activation and is not recommended in patients with therapeutic dose anticoagulant therapy for >24 hours, fibrinolytic therapy within the previous 7 days, trauma or surgery within the previous 4 weeks, disseminated malignancies, aortic aneurysm, sepsis, severe infections, pneumonia, severe skin infections, liver cirrhosis, advanced age, coronary disease, diabetes, and . A very low percentage of patients with DVT may yield D-dimer results below the cutoff of 0.5 mg/L FEU. This is known to be more prevalent in patients with distal DVT. Metabolic Panelon 56-23-2530SLA/1.73 sq M predicted among non-blacks MDRD (S/P/Bld) [Vol rate/Area][facility] Work Phone: comment on above:Stage 1: Some kidney damage normal GFR Stage 2: Mild kidney damage GFR 60-89 Stage 3: Moderate kidney damage GFR 30-59 Stage 4: Severe kidney damage GFR 15-29 Stage 5: Severe kidney damage GFR <15 ESRD - chronic treatment by dialysis or transplant Average GFR for 30-39 years old: 107 mL/min/1.73sq m Chronic Kidney Disease: <60 mL/min/1.73sq m Kidney failure: <15 mL/min/1.73sq m eGFR calculated using average adult body mass. Additional eGFR calculator available at: http://www.Sendmebox/multiple_crcl_2012.htm VPTX-ZhR-4tr [id number]-CoV-2 Source.NASOPHARYNGEAL SWABNormalWayne Healthcare Main CampusComment on above:Performed By: #### COVID #### [employer] [address] [place] [address] Billboard Erector Helper: James Armenta MD [facility] [address] [place] [address] Billboard Erector Helper: Ankit Flores 31-87-2187Wtqysbjn I.cardiac [Mass/Vol] ng/mLNormal0-14[facility] Healthcare Main CampusComment on above:Result Comment: High Sensitivity Troponin values cannot be compared with other Troponin methodologies. Patients with high levels of Biotin oral intake (i.e >5mg/day) may have falsely decreased Troponin levels. Samples collected within 8 hours of biotin intake may require additional information for diagnosis.Performed By: #### DIME, BMPX, BNP, TROPI, CDP #### [facility] [address] [place] [address] Billboard Erector Helper: Laya Flores I.cardiac [Mass/Vol]NOT REPORTEDNormal [facility] Main CampusComment on above:Performed By: #### DIME, BMPX, BNP, TROPI, CDP #### [facility] [address] [place] [address] Billboard Erector Helper: Laya Flores I.cardiac [Mass/Vol]NOT REPORTEDOhiohealth Grant Medical CenterKyruus Phone: Troponifaviola T.cardiac [Mass/Vol]NOT REPORTED<0.03 ng/mL [facility] Phone: Troponin, High Sensitivity<60 - 14 ng/LMzanesville city hospital [employer] Phone: comment on above: High Sensitivity Troponin values cannot be compared with other Troponin methodologies. Patients with high levels of Biotin oral intake (i.e >5mg/day) may have falsely decreased Troponin levels. Samples collected within 8 hours of biotin intake may require additional information for diagnosis. XR CHEST PORTABLEon [id number] CHEST PORTABLEEXAMINATION: ONE XRAY VIEW OF THE CHEST 08/03/2020 8:54 pm COMPARISON: None. HISTORY: ORDERING SYSTEM PROVIDED HISTORY: Shortness of breath TECHNOLOGIST PROVIDED HISTORY: Shortness of breath FINDINGS: The cardiomediastinal silhouette is normal in size and contour. The lungs are clear. No pleural effusion or pneumothorax is present. IMPRESSION: No acute cardiopulmonary process Interpreted by: Vitaly Bell MD Signed by: Vitaly Bell MD 08/03/20 Final resultNormalMercy Health Perrysburg Hospital acute cardiopulmonary processMetrohealth [facility] Medical Center Phone: edi, [facility] Incoming Radiant Results From [employer] - 08/03/2020 9:21 PM EST EXAMINATION: ONE XRAY VIEW OF THE CHEST 08/03/2020 8:54 pm COMPARISON: None. HISTORY: ORDERING SYSTEM PROVIDED HISTORY: Shortness of breath TECHNOLOGIST PROVIDED HISTORY: Shortness of breath FINDINGS: The cardiomediastinal silhouette is normal in size and contour. The lungs are clear. No pleural effusion or pneumothorax is present. IMPRESSION: No acute cardiopulmonary process [employer] Phone: eXAMINATION: ONE XRAY VIEW OF THE CHEST 08/03/2020 8:54 pm COMPARISON: None. HISTORY: ORDERING SYSTEM PROVIDED HISTORY: Shortness of breath TECHNOLOGIST PROVIDED HISTORY: Shortness of breath FINDINGS:The cardiomediastinal silhouette is normal in size and contour. The lungs are clear. No pleural effusion or pneumothorax is present.[employer] Phone: Vital Signs Date TimeVital SignValuePerforming DfqdjeigvPlcqwrnx46-02-0518 11:10-0400Body mass index (BMI) [Ratio]30.4 kg/m2Jacey SHUKLA Work Phone: StudioTweetsTenet St. LouisCzcfhqiism23-24-8873 11:10-0400Body .34 kgJacey SHUKLA Work Phone: [facility] LawnAqwhjjoyry15-49-7008 11:10-0400Diastolic blood mm[Hg]Jacey SHUKLA Work Phone: [facility] LawnMrqamxpxep37-80-4987 11:10-0400Systolic blood mm[Hg]Jacey Berrios PA Work Phone: StudioTweetsTenet St. LouisNpljksxcrl09-91-1143 11:22-0400Body mass index (BMI) [Ratio]30.69 kg/m2Jacey SHUKLA Work Phone: StudioTweetsTenet St. LouisTjjynyyjoi94-51-4709 11:22-0400Body zitskg93.1 kg Jacey SHUKLA Work Phone: StudioTweetsTenet St. LouisHdbpnllqwg30-79-8097 11:22-0400Diastolic blood rfqacffu99 mm[Hg]Jacey SHUKLA Work Phone: [facility] LawnKzheihqiac91-98-2535 11:22-0400Systolic blood dcxgrmqu367 mm[Hg]Jacey Berrios MS Work Phone: [facility] LawnCcctqmxstc03-47-2748 22:30-0500BP Fgrfxkxne16 mm[Hg][employer] [employer] Work Phone: 1(878) 640-643902-24-2021 22:30-0500BP Dydbyycy456 mm[Hg][employer] [facility] [employer] Work Phone: 1(744) 196-253502-24-2021 22:30-0500Pulse (Heart Rate)97 /minHudson Hospital and Clinic [employer] Work Phone: 1(696) 739-854602-24-2021 22:30-0500Pulse Zxeyvfvs979 %[facility] [facility] [employer] Work Phone: 1(930) 344-902902-24-2021 20:10-0500Body Jmnpmpjprrb76.49 [degF] [employer] [facility] [employer] Work Phone: 1(295) 716-799002-24-2021 20:10-0500Respiratory Rate16 /minHudson Hospital and Clinic [employer] Work Phone: 1(965) 812-921208-28-2019 18:01-0400BMI (Body Mass Index)20.8 kg/m2 [facility] Work Phone: 1([phone])773-743184-571548-46070248-64-7565 18:01-0400Body Bveponstvdl98.1 [degF] [facility] Work Phone: 5(713)600-907755198-53-4546 18:01-0400Body nnpwta94.61 kgCyHighlands-Cashiers Hospital Work Phone: 1(689) 518-504108-28-2019 18:01-0400BP Nysjlfxmk66 mm[Hg][facility] Work Phone: [phone](146)611-693507813-72-2358 18:01-0400BP Voqsbixh658 mm[Hg][facility] Work Phone: 1(540) 616-538608-28-2019 18:01-0400BSA (Body Surface Area)1.62 m2 Genna [facility] Work Phone: 1(284) 786-249908-28-2019 18:01-0400Flow Rate0 L/Mt [facility] Work Phone: 1([phone])[phone]7-6665 18:01-3833Akvicb551.1 cmChalina [facility] Work Phone: 1(420) 429-798808-28-2019 18:01-0400Inhaled Oxygen Fyeuwwhmppvsc45 % Genna [facility] Work Phone: 1(334) 921-845608-28-2019 18:01-0400Pulse (Heart Rate)76 /Ayahndnicki [facility] Work Phone: 1(845) 796-356308-28-2019 18:01-0400Pulse Doryfqjb07 %[facility] Work Phone: 1(527) 840-605608-28-2019 18:01-0400Respiratory Rate18 /Ayahndnicki [facility] Work Phone: Encounters Encounter DateEncounter TypeCare ProviderFacilityStart: 03-18-2024 End: 28-12-1990Rzhtpy flowsheetJacey SHUKLA Work Phone: [facility] BCP OBStart: 03-18-2024 End: 66-28-7522Ylclfr flowsheetJacey SHUKLA Work Phone: [facility] BCP OBStart: 03-18-2024 End: 81-67-8455Ggzznliva Result EncounterJacey SHUKLA Work Phone: noms External Department UnsolicitedStart: 03-18-2024 End: 35-17-3919Eqmvzzt encounter procedureJacey SHUKLA Work Phone: [facility] Work Phone: Start: 03-18-2024 End: 49-18-4495Irqtaiwj preventive med est patient 18-39 yrsJacey SHUKLA Work Phone: [facility] BCP OBComment on above:Well woman exam with routine gynecological examStart: 03-18-2024 End: 31-99-1867fhzcewuoczVEF RAMEYNot AvailableStart: 02-12-2024 End: 02-12-4480Oynlsm luisSrinivas SHUKLA Work Phone: [facility] BCP OBStart: 02-12-2024 End: 20-08-7489Dkibxn luisSrinivas SHUKLA Work Phone: [facility] BCP OBStart: 02-12-2024 End: 86-83-3436Utlhju outpatient visit 10 minutesAmy Merry SHUKLA Work Phone: [facility] BCP OBComment on above:Encounter for surveillance of Nexplanon subdermal contraceptiveStart: 02-12-2024 End: 85-18-9079hvygnulfhnAGS RAMEYNot AvailableStart: 01-13-2024 End: 29-30-9233bvgborstncJHB RAMEYNot AvailableStart: 10-11-2023 End: 54-49-9407cggpudukdtAUA RAMEYNot AvailableStart: 07-19-2023 End: 72-19-2683ncybfvqepwZQK RAMEYNot AvailableStart: 04-26-2023 End: 62-17-9573izszgrfyezJGO RAMEYNot AvailableStart: 05-30-2022 End: 99-72-2282rnfwqlrdrcYC VELASQUEZ FAZIOFacility:F6Hundr: 01-17-2022 End: 22-88-3753colcuxeafzLH VELASQUEZ FAZIOFacility:T3Xycxk: 09-27-2021 End: 02-52-0190gctipfgmsdVZ VELASQUEZ FAZIOFacility:F3Gdrhj: 88-43-3282Mxvkhwmzn for preprocedural laboratory examinationDR [facility]ASQUEZ [facility] 09-22[facility]2021 End: 02-81-9495ujjprsxqjrCO VELASQUEZ FAZIOFacility:Q5Ozytu: 09-22-2021 End: 50-85-4568Mmzrnrzrj for preprocedural laboratory examinationDR VELASQUEZ CARVERO Facility:O9Inkex: 72-57-9950Svemlvvqk for cervical smear to confirm findings of recent normal smear following initial abnormal smearDR [facility]ASQUEZ [facility]: 08-30-2021 End: 50-88-4577nymyzahgatTZ VELASQUEZ FAZIOFacility:T6Jarqm: 08-30-2021 End: 36-31-2613Wdqbzrvko for cervical smear to confirm findings of recent normal smear following initial abnormal smearDR VELASQUEZ FAZIOFacility:H7Gcvci: 08-03-2020 End: 26-45-8656Foxlnafhl department patient visitMARC MILA [facility]: 08-[facility]-2020 End: 13-75-6494Qivyldngj department patient visitRichvan Oconnor Work Phone: [facility] EDComment on above:Bronchitis (Primary Dx)Start: 02-04-2019 End: 75-38-6534Ebq patientCynthia Jena Work Phone: [facility] Work Phone: Procedures DateProcedureProcedure DetailPerforming ClinicianStart: 66-56-2596EKA,APTIMA HPV,AGE GDLNJacey SHUKLA Work Phone: Start: 62-64-4649Zukrwnltyac observation [Identifier] in Cervix by Cyto stainJacey SHUKLA Work Phone: Start: 83-11-8451Hekkstjjpw exam chest single view Fantasma Oconnor Work Phone: Start: 73-27-1460Sdb routine ecg w/least 12 lds w/i&r Fantasma Oconnor Work Phone: Start: 08-90-7236Mueim of troponin quantitativeWaynevan Qui.lt Work Phone: Start: 61-13-8090MATGH METABOLIC PANEL W/ REFLEX TO MG FOR LOW KRmaximinovan Girishjannetteinploid.com Work Phone: Start: 79-35-5138Pjmtk count complete auto&auto difrntl wbcCrowdSourcevan Qui.lt Work Phone: Start: 75-80-5982Csmhuw dgradj products d-dimer quantitativeCrowdSourcevan Qui.lt Work Phone: Start: 69-71-4718Comkjyyspsxderian Oconnor Work Phone: Start: 60-75-1655WcpzguTyler Bella Plan of Treatment DateCare ActivityDetailAuthorStart: 97-49-1299Wyfmmkjyf for malignant neoplasm of cervixNOMS HealthcareStart: 93-82-8607Txvfgwklx for malignant neoplasm of cervixPap SmearNOMS HealthcareStart: 03-24-2025 End: 36-12-6522Yvsqdxh encounter /15/2025 11:00 AM EDT Office Visit [facility] [address] [place] [phone] Velasquez Altamirano, [address] [place] [address] [facility] OBStart: 03-18-2024 End: 90-44-7237Cwqtxhm encounter procedureNOMS BCP OBComment on above:Arrived Start: 02-12-2024 End: 79-86-8525Lgvjejm encounter lowhsqkdm37/04/2024 11:30 AM EDT Office Visit [facility] [address] [place] [phone] Jacey Berrios PA [address] [address] ArrivedNOMS BCP OBComment on above:ArrivedStart: 02-09-2024 Influenza vaccinationInfluenza Vaccine (#1)[facility] HealthcareStart: 02-09-2020 Influenza vaccinationFlu vaccine (#1)[facility] [employer] Work Phone: start: 19-58-4012Kourrj [facility] Work Phone: Start: 96-46-4935Hdojmylus for malignant neoplasm of cervixCervical cancer screenMercy Health Work Phone: start: 94-75-8821VDJ screeningHIV screenMercy Health Work Phone: start: 72-72-5863Gkrmexuqz B vaccine (2 of 3 - 3-dose primary series)Hepatitis B vaccine (2 of 3 - 3-dose primary series)[employer] Phone: start: 50-49-8296FNqD/Tdap/Td vaccine (6 - Tdap) DTaP/Tdap/Td vaccine (6 - Tdap)[employer] Phone: start: 72-53-2262Cmfzjtwua vaccine (1 of 2 - 2-dose childhood series)Varicella vaccine (1 of 2 - 2-dose childhood series)[employer] Phone: start: 77-36-5804Trmgzdjik C screeningHepatitis C screenOhiohealth Grant Medical CenterKyruus Phone: End: 46-08-6564HLSFA-19, PCRCOVID-19, PCR Lab Routine One Time for 1 Occurrences starting 08/03/2020 until 08/03/2020[employer] Phone: comment on above:One Time for 1 Occurrences starting 08/03/2020 until 1COVID-19, PCRCOVID-19, PCR Lab STAT 08/03/2020 8:55 PM [employer] Phone: cytology Cervical or vaginal smear or scraping study Pap Smear Pathology and Cytology Routine Well woman exam with routine gynecological exam Ordered: 03/18/2024[employer] Work Phone: comment on above:Ordered: 03/18/2024EKG 12 LeadEKG 12 Lead ECG STAT 08/03/2020 8:44 PM [employer] Phone: Human papilloma virus DNA [Presence] in Unspecified specimen by Probe with amplificationHPV DNA probe, amplified Microbiology Routine Well woman exam with routine gynecological exam Ordered: 03/18/2024SecurusComment on above:Ordered: 03/18/2024MDI TreatmentMDI Treatment Respiratory Care Routine Every 6hr As Needed until discontinued starting 08/04/2020[employer] Phone: comment on above:Every 6hr As Needed until discontinued starting 08/04/2020Nebulizer therapyHHN Treatment Respiratory Care Routine 0600, 1000, 1400, 1800, 2200 until discontinued starting 08/03/2020[facility] Work Phone: comment on above:0600, 1000, 1400, 1800, 2200 until discontinued starting 08/03/2020 Payers DatePayer CategoryPayerPolicy ID2019Medicaid[place] [facility] [id number] 2018-Present [address] [place] [id number] 2019Medicaid (Managed Care)[place] [employer] [id number] [id number] 2.1.563172.3.57[id number] 2.1.161388.3.57[id number] 1.820016.3.57[id number] 2.1.378797.3.57[id number] .1.804145.3.57[id number] 2.16.840.1.238156.3.57[id number] 2.16.840.1.119200.3.57[id number] 2.16.840.1.494789.3.57[id number] 2.16.840.1.773539.3.57[id number] 2.16.840.1.175778.3.57[id number] 2.16.840.1.733056.3.57[id number] 2.16.840.1.577993.3.57[id number] [id number] Social History DateTypeDetailFacilityStart: 49-47-0752Ttqqqyz smoking status NHISNever smoker [employer] Phone: start: 50-38-0110Bbujfcu use and exposureNever used [employer] Phone: start: 28-29-9169Ygpvelk intakeCurrent non-drinker of alcohol (finding)[employer] Phone: start: 20-18-1126Tyb Assigned At BirthNot on [facility]Ky[facility] Phone: exposure to SARS-CoV-2 (event)Not [facility] Phone: assertionHealth [facility] Work Phone: assertionSocial drinker (finding)[facility] Work Phone: AssertionCurrently not sexually active (finding)[facility] Work Phone: assertionGender identity finding (finding)[facility] Work Phone: assertionFinding of sexual orientation (finding)[facility] Work Phone: Tobacco smoking statusUnknown if ever smokedNORI HealthcareStart: 10-11-2023 End: 31-64-6802Ofcbdgqie beverage intakeLifetime non-drinker (finding)NOMS HealthcareGender identityNot on fileNORI HealthcareNEGATED: Highlighted row AssertionIllicit drug use (finding)[facility] Work Phone: NEGATED: Highlighted rowAssertionMisuse of prescription only drugs (finding)[facility] Work Phone: NEGATED: Highlighted rowAssertionExposure to pollution (event)[facility] Work Phone: NEGATED: Highlighted rowAssertionTobacco user (finding)[facility] Work Phone: NEGATED: Highlighted rowAssertionFinding relating to drug misuse behavior (finding)[facility] Work Phone: NEGATED: Highlighted rowAssertionShe has not had 4 or more drinks in a day within the past year.[facility] Work Phone: Mental Status DateAssessmentResultFacilityCognitive functionOriented to time, place, and person Oriented to person, time and place (finding)[facility] Work Phone: History of Present illness Narrative 03-18-2024 Note Date & LeenItlpFxsvmsip52-73-4101 History of Present illness Narrative* GAYLA Mendez - 03/18/2024 11:00 AM EDT Reason for Appointment: Patient ID: Myesha Manning is a 34 y.o. female who presents for Well Women Visit Patient presents today for Annual Exam. MEDICATIONS [...] without aura, not intractable, without status migrainosus (CMS/HCC) 11/14/2022 High grade squamous intraepithelial lesion on [...] 3 ZA, on biopsy of cervix Migraine (CMS/HCC) Moderate dysplasia of cervix (ZA II) Obesity [...] 3 ZA, on biopsy of cervix Migraine (CMS/HCC) chronic Moderate dysplasia of cervix (ZA II) [...] appearance. She is well-developed. Genitourinary: Vulva normal. Right Adnexa: not tender and no mass present. Left Adnexa: not tender and no mass present. No cervical discharge. Breasts: Breasts are soft. Right: Normal. Left: Normal. HENT: Head: Normocephalic. Nose: Nose normal. Mouth/Throat: Mouth: Mucous membranes are moist. Cardiovascular: Rate and Rhythm: Normal rate and regular rhythm. Pulmonary: Effort: Pulmonary effort is normal. Breath sounds: Normal breath sounds. Abdominal: General: Bowel sounds are normal. There is no distension. Palpations: Abdomen is soft. Tenderness: There is no abdominal tenderness. There is no guarding or rebound. Musculoskeletal: General: No swelling. Normal range of motion. Cervical back: Normal range of motion. Right lower leg: No edema. Left lower leg: No edema. Neurological: General: No focal deficit present. Mental Status: She is alert and oriented to person, place, and time. Skin: General: Skin is warm and dry. Psychiatric: Mood and Affect: Mood normal. Behavior: Behavior normal. Vitals and nursing note reviewed. Exam conducted with a telephone interviewer present. Vitals: Estimated body mass index is 30.4 kg/m as calculated from the following: Height as of 04/26/23: 5' 4 . Weight as of this encounter: 177 lb 1.9 oz. BP: 110/70 No LMP recorded. ASSESSMENT & PLAN ICD-10-CM 1. Well woman exam with routine gynecological exam Z01.419 Pap Smear HPV DNA probe, amplified Annual Exam: Patient presents today for an annual exam. Patient states she is doing well and has no complaints. Pap was obtained without difficulty. Orders Placed This Encounter Procedures HPV DNA probe, amplified Follow Up: Patient is to return in one year for annual unless needed otherwise. Documented by Kelsea Huang LPN on behalf of: GAYLA Mendez documented in this encounterNOMS Healthcare History of Present illness Narrative 02-12-2024 Note Date & XnyaCvdeCsydcfix25-33-5801 History of Present illness Narrative* GAYLA Mendez - 02/12/2024 11:30 AM EDT Reason for Appointment: Patient ID: Myesha Manning is a 34 y.o. female who presents for Nexplanon follow up Patient presents today for Medication Follow Up appointment. MEDICATIONS Current Outpatient Medications Medication Instructions Drysol 20 % external solution APPLY TO AREAS OF EXCESSIVE SWEATING UNDERARMS AT BEDTIME ALLERGIES No Known Allergies PROBLEMS Active Ambulatory Problems Diagnosis Date Noted Acute stress reaction 11/14/2022 Atypical squamous cells of undetermined significance (ASCUS) on Papanicolaou smear of cervix 11/14/2022 Carcinoma in situ of uterine cervix 11/14/2022 Cervical high risk HPV (human papillomavirus) test positive 11/14/2022 Cervical intraepithelial neoplasia grade 2 11/14/2022 Chronic migraine without aura, not intractable, without status migrainosus (CMS/HCC) 11/14/2022 High grade squamous intraepithelial lesion on [...] 3 ZA, on biopsy of cervix Migraine (CMS/HCC) Moderate dysplasia of cervix (ZA II) Obesity [...] 3 ZA, on biopsy of cervix Migraine (CMS/HCC) chronic Moderate dysplasia of cervix (ZA II) [...] Exam Constitutional: Appearance: Normal appearance. She is normal weight. HENT: Head: Normocephalic. Cardiovascular: Rate and Rhythm: Normal rate. Pulses: Normal pulses. Pulmonary: Effort: Pulmonary effort is normal. Breath sounds: Normal breath sounds. Abdominal: Palpations: Abdomen is soft. Musculoskeletal: General: Normal range of motion. Comments: Nexplanon palpated left upper extremity Neurological: General: No focal deficit present. Mental Status: She is alert and oriented to person, place, and time. Psychiatric: Mood and Affect: Mood normal. Behavior: Behavior normal. Thought Content: Thought content normal. Judgment: Judgment normal. Vitals and nursing note reviewed. Vitals: Estimated body mass index is 30.69 kg/m as calculated from the following: Height as of 23: 5' 4 . Weight as of this encounter: 178 lb 12.8 oz. BP: 106/68 No LMP recorded. ASSESSMENT & PLAN ICD-10-CM 1. Encounter for surveillance of Nexplanon subdermal contraceptive Z30.46 Pt here for nexplanon follow up. Doing well, no issues or concerns Documented by GAYLA Mendez on behalf of: GAYLA Mendez documented in this encounterC[facility] Clinical Note 09-27-2021 Note Date & OmeoKkixWvqrquoi38-94-6944 NoteThe [place], [place] NAME: MYESHA MANNING DATE OF : MEDICAL REC#: [id number] [employer] SUPERVISOR: [address] [facility] DATE: 09/27/2021 07:14:00 PHOTOGRAPHY PROFESSOR DATE: 09/27/2021 23:00 DICTATING PHYSICIAN: VELASQUEZ ALTAMIRANO DICTATION DATE: 09/27/2021 09:00 OPERATIVE NOTE OPERATION DATE:09/27/2021 PREOPERATIVE DIAGNOSIS: Cervical dysplasia, high grade. POSTOPERATIVE DIAGNOSIS: Cervical dysplasia, high grade. Procedure: leep with tophat ANESTHESIA: General. SURGEON: Velasquez Altamirano D.O. BREAD PAN GREASER: None. SPECIMEN: Ecto and endocervical tissue. FINDINGS: Cervical dysplasia at the 3:00, 6:00 and 10:00 positions. BLOOD LOSS: 5 mL. URINE OUTPUT: Yellow and clear. PROCEDURE: Patient was taken back to the Operating Room where she was given general anesthesia without difficulty. She was then placed in the dorsal lithotomy position. She was then prepped and draped in the normal sterile fashion. A weighted speculum was placed into the patient's vagina. The anterior lip of the cervix was identified and grasped with a single-tooth tenaculum. The patient's cervix was then copiously irrigated using vinegar. Then, a Lugol Solution was also placed onto the patient's cervix which demonstrated increased uptake of the Lugol solution at the 3 o'clock, 6 o'clock and 10 o'clock positions. At that time, the LEEP portion of the procedure was performed with tophat, including the 3 o'clock, 6 o'clock and 10 o'clock positions. The ectocervix and endocervix was sent out to Pathology. The patient's cervix was then coagulated using suction cautery. Excellent hemostasis was assured. Monsel Solution was then placed onto the patient's cervix to help maintain adequate hemostasis. All instruments were removed from the patient's vagina. The anterior lip of the cervix demonstrated excellent hemostasis. The patient tolerated the procedure well. Sponge, lap, and needle counts were correct x 2. The patient was taken to Recovery Room in stable condition. Electronically Authenticated and Edited by: Velasquez Altamirano DO on 10/01/2021 09:18 PM EDT [facility] Signed and Approved by: DR VELASQUEZ ALTAMIRANO . 10/01/2021 21:18:00[facility] Evaluation note Note Date & TypeNoteFacilityEvaluation note* Diagnosis Well woman exam with routine gynecological exam Routine gynecological examination documented in this encounter [facility] Healthcare Evaluation note Note Date & TypeNoteFacilityEvaluation note* Diagnosis Encounter for surveillance of Nexplanon subdermal contraceptive documented in this encounter [facility] Healthcare Summary Purpose Family History Description Last Updated No significant medical history in nuclea r family 02/04/2019 Advance Directives TypeDate RecordedPatient RepresentativeExplanationACP-Advance DirectiveACP-Power of Charge Account Authorizer Discharge Instructions * Discharge Instr - BABAR* Fantasma Oconnro MD - 08/03/2020 8:02 PM EST Continuity of Care Form Patient Name: Myesha Manning DOB: 1990 Admit date: 08/03/2020 Discharge date: Code Status Order: No Order Advance Directives: Admitting Physician: No admitting provider for patient encounter. PCP: Marcus Dang MD Discharging Nurse: Discharging Hospital Unit/Room#: 05/21 Discharging Unit Phone Number: Emergency Contact: Extended Emergency Contact Information Primary Emergency Contact: Fantasma Manning Address: [facility] [address] [place] [address] Relation: Spouse Past Surgical History: History reviewed. No pertinent surgical history. Immunization History: There is no immunization history on file for this patient. Active Problems: There is no problem list on file for this patient. Isolation/Infection: Isolation No Isolation Patient Infection Status Infection Onset Added Last Indicated Last Indicated By Review Planned Expiration Resolved Resolved By COVID-19 Rule Out 08/03/20 08/03/20 08/03/20 COVID-19, PCR (Ordered) 08/10/20 08/17/20 Nurse Assessment: Last Vital Signs: BP (!) 145/75 Pulse 102 Temp 98.5 F (36.9 C) (Tympanic) Resp 16 SpO2 100% Last documented pain score (0-10 scale): Last Weight: Wt Readings from Last 1 Encounters: 03/22/17 145 lb (65.8 kg) Mental Status: {IP PT MENTAL STATUS:21512} IV Access: { BABAR IV ACCESS:321886096} Nursing Mobility/ADLs: Walking {CHP DME ADLs:792178365} Transfer {CHP DME ADLs:137534861} Bathing {CHP DME ADLs:618288155} Dressing {CHP DME ADLs:828363522} Toileting {CHP DME ADLs:800561630} Feeding {CHP DME ADLs:458934779} Nurse'S Assistant {CHP DME ADLs:798452703} Med Delivery { BABAR MED Delivery:563814508} Wound Care Documentation and Therapy: Elimination: Continence: Bowel: {YES / NO:} Bladder: {YES / NO:} Urinary Catheter: {Urinary Catheter:216491695} Colostomy/Ileostomy/Ileal Conduit: {YES / NO:} Date of Last BM: No intake or output data in the 24 hours ending 08/03/202216 No intake/output data recorded. Safety Concerns: { BABAR Safety Concerns:123596726} Impairments/Disabilities: { BABAR Impairments/Disabilities:823445973} Nutrition Therapy: Current Nutrition Therapy: { BABAR Diet List:455413934} Routes of Feeding: {CHP DME Other Feedings:179295265} Liquids: {Mri Special Procedures Technologist liquid thickness:69849} Daily Fluid Restriction: {CHP DME Yes amt example:565571803} Last Modified Barium Swallow with Video (Video Swallowing Test): {Done Not Done Date:050598576} Treatments at the Time of Hospital Discharge: Respiratory Treatments: Oxygen Therapy: {Therapy; copd oxygen:82499} Ventilator: { CC Vent List:366177059} Rehab Therapies: {THERAPEUTIC INTERVENTION:2183183209} Weight Bearing Status/Restrictions: {[facility] Weight Bearin} Other Medical Equipment (for information only, NOT a DME order): {EQUIPMENT:258069524} Other Treatments: Patient's personal belongings (please select all that are sent with patient): {[facility] DME Belongings:943926579} RN SIGNATURE: {Esignature:080269915} CASE MANAGEMENT/SOCIAL WORK SECTION Inpatient Status Date: Readmission Risk Assessment Score: Readmission Risk Risk of Unplanned Readmission: 0 Discharging to Facility/ Agency Name: Address: Phone: Fax: Dialysis Facility (if applicable) Name: Address: Dialysis Schedule: Phone: Fax: Mold [employer]er/Logistics Lead signature: {Esignature:144641635} PHYSICIAN SECTION Prognosis: {Prognosis:5948313930} Condition at Discharge: { Patient Condition:118446272} Rehab Potential (if transferring to Rehab): {Prognosis:9970506501} Recommended Labs or Other Treatments After Discharge: Physician Certification: I certify the above information and transfer of Myesha Manning is necessary for the continuing treatment of the diagnosis listed and that she requires {Admit to Appropriate Level of Care:67382} for {GREATER/LESS:280498532} 30 days. Update Admission H&P: {CHP DME Changes in HandP:145002424} PHYSICIAN SIGNATURE: {Esignature:151410016} * Additional Instructions* Fantasma Oconnor MD - 08/03/2020 You may utilize the Proventil inhaler as directed if necessary, please continue with prednisone andTessalon Perles as recently prescribed Please quarantine pending COVID-19 results and per protocol * Attachments The following attachments cannot be sent through Care Everywhere. * Bronchitis (Tanzanian) * Coronavirus: COVID-19: Contact Tracing: General Info (Tanzanian) documented in this encounter Assessments Diagnosis Bronchitis- Primary Bronchitis, not specified as acute or chronic Findings Encounter Date Dast - 10 Score was 0 02/04/2019 Medical New Patient with Genna Bella CNP 02/04/2019 Diabetes Risk Test Score was one score 02/04/2019 Medical New Patient with Genna Bella CNP 02/04/2019 PHQ-9: total score was 0 02/04/2019 Medic al New Patient with Genna Bella CNP 02/04/2019 Routine history and physical Medical New Patient with Genna Bella CNP 02/04/2019 Z68.20 - Body mass index (BM I) 20.0-20.9, adult Medical New Patient with Genna Bella CNP 02/04/2019 Instructions Instructions not supported for this document type No Instructions Recorded History of Present Illness History of Present Illness not supported for this document type No History of Present Illness Recorded Review of System Review of Systems not supported for this document type No Review of Systems Recorded Physical Exam Physical Exam not supported for this document type No Physical Exam Recorded Additional Source Comments INFORMATION SOURCE (unrecogn ized section and content) DATE CREATED AUTHOR 08/06/2020 [facility] DATE CREATED AUTHOR AUTHOR'S ORGANIZ ATION 06/06/2022 [facility] DATE CREATED AUTHOR AUTHOR'S ORGANIZ ATION 03/20/2024 [facility] EPIC Reason for Visit (unrecogniz ed section and content) ReasonCommentsCoughwas seen at urgent care ealier, started on benzonate and prednisoneShortness of Breathgetting worse, onset 2 daysReasonCommentsWell Women VisitReasonCommentsNexplanon follow up Evaluations & Outcomes (unre cognized section and content) Includes: Evaluations & Outcomes for active GoalsNo Outcomes Recorded Care Teams (unrecognized sec tion and content) Team MemberRelationshipSpecialtyStart DateEnd Date Marcus Dang MD [address] [place] [phone] PCP - [facility]10/07/23Team MemberRelationshipSpecialtyStart DateEnd Date Marcus Dang MD [address] [place] [phone] PCP - [facility]10/07/23Team MemberRelationshipSmulticare valley hospitalialAlta Vista Regional Hospitalart DateEnd Date Marcus Dang MD [address] [place] [address] PCP - [facility]10/07/23 FOR RECORDS PERTAINING TO PATIENTS WHO ARE OR HAVE BEEN ENROLLED IN A CHEMICAL DEPENDENCY/SUBSTANCEABUSE PROGRAM, SOME INFORMATION MAY BE OMITTED. This clinical summary was aggregated from multiple sources. Caution should be exercised in using it in the provision of clinical care. This summary normalizes information from multiple sources, and as a consequence, information in this document may materially change the coding, format and clinical context of patient data. In addition, data may be omitted in some cases. CLINICAL DECISIONS SHOULD BE BASED ON THE PRIMARY CLINICAL RECORDS. [facility]. provides no warranty or guarantee of the accuracy or completeness of information in this document.
--- OUTSIDE RECORDS SUMMARY | 2025-04-22 19:06 | XMS_ITS | Patient Health Record ---
Author Organization [facility] Address [address], [place] [id number] Care Team Providers Care Admissions Recruiter Name Role Phone Stephanie Maria Unavailable [phone] Allergies No Known Allergies Reason For Referral No Information Medications Medication SIG (Take, Route, Frequency, Duration) Notes Start Date End Date Status Depo-Provera Not-TakingPreviDent 1.1 %as directed Rwgzbh2208/08/2023Not-Taking Social History Sex Assigned At : Social History Observation Description Sex Assigned At Female Tobacco Use/Smoking Question Answer Notes Additional Findings: Tobacco Non-User Current no n-smoker PRAPARE Question Answer Notes What is your current housing situation? I have h ousing patient entered data Problems Problem Type SNOMED Code ICD Code Onset Dates Problem Status W/U Status Risk Notes Problem Body mass index 30+ - obesity (823905273) BMI 30.0-30.9,adult (Z68.30) Activeconfirmed Plan Of Treatment No Information Insurance Providers Payer Name Payer Address Payer Phone Subscriber Number Group Number Insured Name Patient Relationship to Insured Coverage Start Date Coverage End Date [employer] EDA [address] [address] [place] [address] [id number] Deep Swensonelf - patient is the [id number] 2022Medicaid [facility] after [place] Advantage Envolve[address] [place], [place] [id number], Erin Self - patient is the [id number] 2022SFS [id number] [place] [id number], ErinSelf - patient is the [id number] 2023 2024
--- OUTSIDE RECORDS SUMMARY | 2025-04-22 19:06 | XMS_ITS | Clinical Summary ---
Author Organization [facility] Address [address] [place] [address] Care Team Providers Care Right Of Way Worker Name Role Phone Marcus Swan MD Primary Care Provider [phone] Allergies No known active allergies Medications No known medications Active Problems ProblemNoted DateDiagnosed EtzlZwptxfdsju22/27/2023Acute stress reaction 3Atypical squamous cells of undetermined significance (ASCUS) on Papanicolaou smear of zbhuws313Carcinoma in situ of uterine cervix 3Cervical high risk HPV (human papillomavirus) test zexejuvr53/07/2023 Cervical intraepithelial neoplasia grade 3Chronic migraine without aura, not intractable, without status uxdsqtetgba95/07/2023High grade squamous intraepithelial lesion on cytologic smear of cervix (HGSIL)11/14/2022Obesity 11/14/2022 Encounters DateTypeDepartmentCare IvetUbftwdjtqaw82/13/2025 9:00 AM ESTProcedure Visit [facility] [address] [place] [address] Sachi Pradhan NP Well woman exam with routine gynecological exam04/22/2025amboo flowsheet [facility] [address] [facility] [place] [address] Sachi Pradhan NP 02/24/2025Telephone [facility] [address] [place] [address] Stephanie Yao MA 02/23/2025Refill [facility] [address] [place] [address] Russel Altamirano DO Breakthrough bleeding on Nexplanonfrom Last 3 Months Family History RelationNameStatusCommentsDaughter2 daughtersMotherDeceased Social History Tobacco UseTypesPacks/DayYears UsedDateSmoking Tobacco: Never AssessedAlcohol UseStandard Drinks/WeekCommentsNever0 (1 standard drink = 0.6 oz pure alcohol) CommentsUnknownSex and Gender InformationValueDate RecordedSex Assigned at BirthNot on fileLegal TxnAlzdme07/15/2023 11:47 PM EDTGender IdentityNot on fileSexual OrientationNot on file Last Filed Vital Signs Vital SignReadingTime TakenCommentsBlood Tsywaurz064/6004/22/2025 9:04 AM EST Pulse--Temperature--Respiratory Rate--Oxygen Saturation--Inhaled Oxygen Concentration--Xbrtaj57.2 kg (176 lb 12.8 oz)04/22/2025 9:04 AM DDDGtwxcr563.6 cm (5' 4 )04/26/2023 10:31 AM ESTBody Mass Index30.35106/26/2022 10:31 AM EST Plan of Treatment DateTypeDepartmentCare Team (Latest Contact Info)Flgummpkryc49/25/2026 4:00 PM ESTProcedure Visit [facility] [address] [place] [phone] Russel Altamirano, [address] [place] [address] Insurance Care Teams Team MemberRelationshipSpecialtyStart DateEnd Date Marcus Swan MD [address] [place] [address] [facility]10/07/23
--- OUTSIDE RECORDS SUMMARY | 2025-04-22 19:06 | XMS_ITS | Encounter Summary ---
Author Organization [facility] Address [address] [facility] [place] [address] Care Team Providers Care Fibrous Plasterer Name Role Phone Marcus Swan MD Primary Care Provider [phone] Encounter Details DateTypeDepartmentCare Team (Latest Contact Info)Ffnpkilhvrm57/13/2025amboo flowsheet [facility] [address] [place] [address] Sachi Pradhan, RAO [address] [place] [address] Social History Tobacco UseTypesPacks/DayYears UsedDateSmoking Tobacco: Never AssessedAlcohol UseStandard Drinks/WeekCommentsNever0 (1 standard drink = 0.6 oz pure alcohol) CommentsUnknownSex and Gender InformationValueDate RecordedSex Assigned at BirthNot on fileLegal QiwPouxwe59/15/2023 11:47 PM EDTGender IdentityNot on fileSexual OrientationNot on filedocumented as of this encounter Plan of Treatment DateTypeDepartmentCare Team (Latest Contact Info)Ezxhydyjlny67/25/2026 4:00 PM ESTProcedure Visit [facility] [address] [place] [address] Russel Altamirano DO [address] [place], [facility]11 documented as of this encounter Visit Diagnoses Not on filedocumented in this encounter Care Teams Team MemberRelationshipSpecialtyStart DateEnd Date Marcus Swan MD [address] [place] [address] PCP - GeneralFamily Medicine10/07/23documented as of this encounter
--- OUTSIDE RECORDS SUMMARY | 2025-04-22 19:06 | XMS_ITS | Clinical Summary ---
Author Organization [facility] Address [address] 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 Role Phone Unavailable Primary Care Provider Unavailabl e Social History Tobacco UseTypesPacks/DayYears UsedDateSmoking Tobacco: Never Assessed CommentsUnknownSex and Gender InformationValueDate RecordedSex Assigned at Not on fileLegal VpkQdpigk60/13/2024 11:34 AM EDTGender IdentityNot on file Sexual OrientationNot on file Plan of Treatment Health MaintenanceDue DateLast DoneCommentsHIV Eihpxfvve1988Lipid Panel 1988Yearly Adult Vevgxbcs1988MMR Vaccines (1 of 1 - Standard series) 01/08/1989Hepatitis C Cirebjqxf53/01/2006Hepatitis B Vaccines (1 of 3 - 19+ 3- dose series)01/08/2007Cervical Cancer Gdyotnyth18/01/2009HPV/Ctmwbs6901/08/2009Pap Smear01/08/2009DTaP/Tdap/Td Vaccines (1 - Tdap)01/08/2010HPV Vaccines (1 - 3- dose standard series)01/08/2015Influenza Vaccine (#1)5COVID-19 Vaccine ( - season)2025Zoster Vaccines (1 of 2)01/08/2038HIB VaccinesAged OutNo longer eligible based on patient's age to complete this topicHepatitis A VaccinesAged OutNo longer eligible based on patient's age to complete this topic IPV VaccinesAged OutNo longer eligible based on patient's age to complete this topicMeningococcal VaccineAged OutNo longer eligible based on patient's age to complete this topicPneumococcal Vaccine: Pediatrics and At-Risk Adult Patients Aged OutNo longer eligible based on patient's age to complete this topic Rotavirus VaccinesAged OutNo longer eligible based on patient's age to complete this topic
== END 2025-04-22 19:02 | disposition home or self-care (01) ==
LOC: LAB 19:01
PROVIDERS: PCP Physician Assistant; Visit Provider Nurse Practitioner Family
DX: Z01.419 Encounter for gynecological examination (general) (routine) without abnormal findings (principal)
CPT/HCPCS: 87624; 88175